=== PATIENT | female | born 1995 | race Caucasian/White ===

== ENCOUNTER 2020-09-14 09:36 | Emergency (ER) | payer OTHER ==
[2020-09-14 09:44] VITALS: BP 135/91; PULSE 104; TEMP 98.3; BMI 26.3
[2020-09-14 10:45] LABS: URINE APPEARANCE CLOUDY; URINE BILIRUBIN NEGATIVE (NEGATIVE); URINE COLOR YELLOW; URINE GLUCOSE (UA) NEGATIVE (NEGATIVE); URINE KETONE NEGATIVE (NEGATIVE); URINE LEUK ESTERASE NEGATIVE (NEGATIVE); URINE NITRITE NEGATIVE (NEGATIVE); URINE PROTEIN NEGATIVE (NEGATIVE); URINE UROBILINOGEN 0.2 mg/dL (0.2-1.0)
[2020-09-14 10:48] LABS: HCG,QUALITATIVE URINE Negative
== END 2020-09-14 12:41 | disposition home or self-care (01) ==
LOC: JER 09:36
DX: R22.41 Localized swelling, mass and lump, right lower limb (principal)
CPT/HCPCS: 76882-TC-RT-FY; 81003; 84703; 87086; 99284-25